=== PATIENT | female | born 1995 | race American Indian/Alaskan Native ===

== ENCOUNTER 2017-04-19 12:54 | Outpatient (CLI) | payer MEDICAID ==
[2017-04-19 13:41] VITALS: BP 113/72
== END 2017-04-19 15:30 | disposition home or self-care (01) ==
LOC: TRG 12:54
PROVIDERS: ATTEND Obstetrics & Gynecology
DX: O47.02 False labor before 37 completed weeks of gestation, second trimester (principal); Z3A.23 23 weeks gestation of pregnancy